=== PATIENT | female | born 1990 | race Caucasian/White ===

== ENCOUNTER 2018-06-26 11:41 | Day surgery (SDC) | payer OTHER ==
[2018-06-25 17:11] VITALS: BMI 23.0
--- NOTE | 2018-06-25 22:41 | HP ---
DATE OF ADMISSION: DATE OF DICTATION: 06/25/2018 HISTORY OF PRESENT ILLNESS: The patient is a 28-year-old female, known to my practice, who enters for removal of IUD from a hysteroscopy, D&C, exploratory laparoscopy with excision of ovarian cyst. Patient was referred to me by a inspection supervisor from [place], [place], Dr. Philippe. She has had Paragard IUD in place since 2011. The last several months, patient had prolonged difficult to control bleeding. Her menses are relatively on time. Sonogram showed IUD in a right position, but other than that, was very difficult to diagnose. In addition, patient had complaints of pelvic pain and dyspareunia. The same sonogram showed left adnexal cyst measuring 9.2 cm which certainly would explain the pain. Patient is planning to have children in the future. Every effort will be done to preserve fertility. At that point, she decided to give up the IUD. This will be searched for under anesthesia, since the strings were not palpated. PAST MEDICAL, SOCIAL HISTORY: Unremarkable. FAMILY HISTORY: Without evidence of ovarian, uterine, breast or colon cancer. ALLERGIES: None. MEDICATION: None. REVIEW OF SYSTEMS: Unremarkable for all systems except what mentioned above. PHYSICAL EXAMINATION: GENERAL: Reveals very pleasant, well developed, well nourished white female, alert, oriented, in no acute distress. HEAD/NECK: Within normal limits. . CHEST/COR: Within normal limits. Regular sinus rhythm. ABDOMEN: Soft, flat. Mild left lower quadrant tenderness on the deep palpation. No guarding, no rebound. Bowel sounds normal. No CVA tenderness. PELVIC: External genitalia, vulva, vagina, BUS nulliparous. Blood in the vagina. Flow is compatible with menses. Cervix is nulliparous, small. Cannot visualize or palpate the strings. Uterus is axial, normal size. No significant tenderness. Right adnexa within normal limits. Left adnexa with fullness measuring at least 7 to 8 cm, quite tender on palpation. IMPRESSION: 1. Pelvic pain. 2. Left ovarian cyst, rather large and tender. 3. Deep dyspareunia. 4. Dysfunctional uterine bleeding with prolonged flow and relatively regular cycles. 5. Intrauterine device in place with lost strings. PLAN: 1. Hysteroscopy, dilation and curettage. 2. Removal of IUD. 3. Exploratory laparoscopy, resection of the left ovarian cyst. Patient understands the procedure very well. All the risks, material, complications were explained to patient and discussed at length. A lot of the discussion held was over the telephone the night before planned surgery. Patient understands, and consents to the operation. All questions answered. MD TERRELL ROQUE/[id number]
[2018-06-26] MEDS ORDERED: PROPOFOL 20 ML ONE (13:15)
[2018-06-26] MEDS ORDERED: MIDAZOLAM HCL 2 MG/2 ML SINGLE DOSE VIAL ONE (13:15)
[2018-06-26] MEDS ORDERED: ROCURONIUM BROMIDE 50 MG/5 ML VIAL ONE ×2 (13:15→14:12)
[2018-06-26] MEDS ORDERED: ceFAZolin SODIUM 1 GM VIAL ONE (13:45)
[2018-06-26] MEDS ORDERED: ceFAZolin SODIUM 1 GM VIAL IVPB ONE (13:48)
[2018-06-26] MEDS ORDERED: DESFLURANE GAS 240 ML BOTTLE IH ONE (14:38)
[2018-06-26] MEDS ORDERED: BUPIVACAINE HCL/PF 0.5% (5MG/ML) 10 ML VIAL ONE (14:48)
[2018-06-26] MEDS ORDERED: DEXAMETHASONE SOD PHOSPHATE 4 MG/1 ML VIAL ONE (14:59)
[2018-06-26] MEDS ORDERED: KETOROLAC TROMETHAMINE 30 MG/1 ML VIAL ONE (14:59)
[2018-06-26] MEDS ORDERED: NEOSTIGMINE METHYLSULFATE 0.5 MG/ML - 10 ML MDV ONE (15:02)
[2018-06-26] MEDS ORDERED: GLYCOPYRROLATE 0.2 MG/1 ML VIAL ONE (15:07)
--- NOTE | 2018-06-26 15:29 | OP ---
Operative Note - Note: Operative Date: 06/26/18 Pre-Operative Diagnosis: left ovarian cyst, pelvic pain, bleeding, dyspareunia Operation: Hysterocopy with removal of IUD and D&C. exploratory laparoscopy with lysis of adhesion and removal of left ovarian cyst Surgeon: Osiel Jama Adjuster Piano Action: Paige Burris Anesthesiologist/AIR FORCE SENIOR OFFICER: Myles Guerin Anesthesia: General Specimens Removed: ahesion, curretage, IUD and fluid for cystology and cyst wall and lining Estimated Blood Loss (mls): 25 Drains, Volume Out (mls): 200 (foreman) Fluid Volume Replaced (mls): 1,400 Operative Report Dictated: Yes
[2018-06-26] MEDS ORDERED: ONDANSETRON 4 MG/2 ML VIAL IVPUSH PRN (15:39)
[2018-06-26] MEDS ORDERED: oxyCODONE HCL 5 MG TABLET PO PRN (15:39)
[2018-06-26] MEDS ORDERED: LACTATED RINGERS SOLUTION 1,000 ML IV SCH (15:45)
[2018-06-26] MEDS ORDERED: ONDANSETRON 4 MG/2 ML VIAL IVPUSH ONE ×2 (16:20→18:25)
[2018-06-26] MEDS ORDERED: METOCLOPRAMIDE HCL INJECTION 10 MG/2 ML VIAL IVPUSH ONE (16:30)
[2018-06-26] MEDS ORDERED: ONDANSETRON 4 MG/2 ML VIAL ONE ×2 (17:32→18:29)
[2018-06-26] MEDS ORDERED: METOCLOPRAMIDE HCL INJECTION 10 MG/2 ML VIAL ONE (17:44)
[2018-06-26 18:03] VITALS: TEMP 97.5
[2018-06-26 20:01] VITALS: BP 115/72; PULSE 77
--- NOTE | 2018-06-27 08:27 | OP ---
DATE OF OPERATION: DATE OF DICTATION: 06/26/2018 PREOPERATIVE DIAGNOSES: 1. Menorrhagia, retained IUD. 2. Pelvic pain. 3. Dyspareunia. 4. Large left ovarian cyst. POSTOPERATIVE DIAGNOSES: 1. Menorrhagia, retained IUD. 2. Pelvic pain. 3. Dyspareunia. 4. Large left ovarian cyst. 5. Left-sided pelvic adhesions. PROCEDURE: , lysis of pelvic adhesions. SURGEON: Osiel Jama MD FIELD TECH: ANESTHESIA: General with ET. PROCEDURE AND FINDINGS: Under general anesthesia, patient was placed in dorsal lithotomy position. Examination was carried out confirming preoperative findings. Following vaginal prep and drape, speculum was inserted, and cervix was grasped with tenaculum. Using thin packing forceps, IUD was identified and removed. It was sent for identification. Hysteroscopy was carried out with saline as the distending medium. Normal cavity with 2 normal tubal ostia were visualized. Endocervix was clean. Following minimal dilation using small curette, sharp curettage was performed producing small amount of tissue which was sent as a specimen. [employer] uterine manipulator was placed in the uterus and Shine catheter was inserted. Patient was redraped for the laparoscopy. Incision was placed vertically inside the umbilicus. Veress needle was introduced, and pneumoperitoneum was accomplished without difficulty. A 12-mm trocar was then introduced into the abdomen. Laparoscope was inserted. Under direct vision, 2 additional 5-mm trocars were placed on the right and left side at the level of umbilicus. Using atraumatic manipulator, pelvis was thoroughly examined. Large about 8- to 10-cm was noted. There were multiple adhesions between the cyst wall, and posterior leaf of broad ligament and the cyst was fixed in the position. Right adnexa and left fallopian tube were completely within normal limits. There was no evidence of endometriosis, infection, or any other pathology. Laparoscopic needle was then placed in the abdomen and cavity of the cyst was entered. About 40 mL of clear fluid was withdrawn. Cyst was then grasped and incised with LigaSure device. The rest of the fluid was allowed to escape from the cyst. Inside of the cyst was examined and was noted to be completely smooth without any excrescences. Deflated cyst was then elevated, and extensive adhesions posteriorly were noted. They were all lysed by sharp dissection using LigaSure device. Specimen of the adhesions was removed and sent for Pathology. Using LigaSure device, about one-third of the cyst wall was then excised creating an opening. With the use of 2 graspers, remaining lining of the cyst was then pealed by blunt dissection. Both specimens were placed in the cul-de-sac. Pelvis was thoroughly lavaged. Edges of the excision were secured, and hemostasis was attended to copiously. Most of the ovarian tissue was preserved. Using EndoCatch, specimens were retrieved. Pelvis was lavaged again, and fluid was suctioned. Hemostasis was excellent. All parts were then removed under direct vision. Gas was allowed to escape from the abdomen. Umbilical incision was closed with Vicryl 2-0 on fascia and continuous 3-0 Monocryl subcuticular on the skin. Remaining two 5-mm incisions were closed with subcuticular Monocryl 3-0 sutures. Steri-Strips were applied and covered with bandage. Shine was removed. Urine was clear. Patient was awakened without any problems. In stable condition and comfortable, patient was transferred to the postanesthesia care unit. Blood loss was 25 mL. MD TERRELL ROQUE/[id number]
--- NOTE | 2018-06-30 10:54 | PATH ---
Surgical Pathology Report Patient Name: HEATH RIOS [facility]. Rec. #: [id number] /Age/Gender: 1990 (Age: 28) / F Account: [id number] Location: [facility] Taken: 06/26/2018 Received: 06/29/2018 Reported: 06/30/2018 Physicians: Osiel Jama MD Specimen(s) Received A: REMOVED IUD B: ENDOMETRIAL CURETTINGS C: LEFT OVARIAN CYST AND LINING D: PELVIC ADHESIONS Clinical History Left adnexal cyst, dyspareunia Final Diagnosis A. ACCOUNTS ADMINISTRATOR, UTERUS, REMOVAL: ACCOUNTS ADMINISTRATOR CONSISTENT WITH IUD (GROSS ONLY). B. ENDOMETRIUM, CURETTING: ENDOCERVICAL MUCOSA WITH ACUTE AND CHRONIC INFLAMMATION, AND SCANT ENDOMETRIAL EPITHELIUM. NO ENDOMETRIAL HYPERPLASIA OR CARCINOMA IDENTIFIED. C. LEFT OVARY, CYSTECTOMY: BENIGN MUCINOUS CYSTADENOMA, BENIGN OVARIAN FIBROMA. D. PELVIC ADHESIONS, EXCISION: BENIGN FIBROVASCULAR TISSUE CONSISTENT WITH ADHESIONS. Electronically Signed Chico Collier M.D. Gross Description A. Received fresh labeled "removed IUD," is a 3.5 cm in length T-Shaped device with attached string, consistent with an IUD. No soft tissue is present. No sections are submitted, gross only. B. Received in formalin labeled "endometrial curettings," is a 0.8 x 0.6 x 0.2 cm aggregate of alford soft tissue fragments admixed with blood-tinged mucous. The formalin is filtered and the specimen is entirely submitted in one cassette. C. Received in formalin labeled "left ovarian cyst lining," is a 4.5 x 3.3 x 1.3 cm aggregate of alford, irregular portions of soft tissue, consistent with a disrupted cyst. The outer surface of the cyst is alford and smooth. Sectioning reveals a smooth inner lining. No excrescences are identified. Sectioning of the cyst wall reveals a 0.8 cm in greatest dimension solid nodule within the cyst wall. The cut surface of the nodule is homogeneous alford-yellow and firm. Classifying Machine Operator sections are submitted in 3 cassettes as follows: 1-solid nodule; 0-3-ofykzxaplu petroleum products sales representative cyst. D. Received in formalin labeled "pelvic adhesions," is a 1.3 cm in greatest dimension alford soft tissue fragment. The specimen is submitted in toto in one cassette. DL/06/29/2018 [facility]/2018
--- NOTE | 2018-06-30 16:03 | PATH ---
Cytology Non-Gynecological Report Patient Name: HEATH RIOS [facility]. Rec. #: [id number] /Age/Gender: 1990 (Age: 28) / F Account: [id number] Location: [facility] Taken: 06/29/2018 Received: 06/29/2018 Reported: 06/30/2018 Physicians: Osiel Jama MD Specimen(s) Received LEFT OVARIAN CYST FLUID Clinical History Ovarian cyst Final Diagnosis LEFT OVARIAN CYST FLUID, ASPIRATION: SATISFACTORY FOR EVALUATION. BENIGN (NO MALIGNANT CELLS IDENTIFIED). PROTEINACEOUS MATERIAL WITH NO INTACT EPITHELIAL COMPONENT IDENTIFIED, AND SCANT MACROPHAGES. Comment: Also see [id number]. Electronically Signed [place] Collier M.D. Gross Description 40ML of cloudy white fluid was received fresh. 2 cytospin and 1 cell block was prepared.
== END 2018-06-26 20:05 | disposition home or self-care (01) ==
LOC: JASU-SURG 11:41
PROVIDERS: ATTEND Specialist
PROC: 0UC98ZZ Extirpation of Matter from Uterus, Via Natural or Artificial Opening Endoscopic (ICD-10-PCS; principal; 2018-06-26 13:00)
PROC: 0UDB7ZX Extraction of Endometrium, Via Natural or Artificial Opening, Diagnostic (ICD-10-PCS; 2018-06-26 13:00)
PROC: 0UJD8ZZ Inspection of Uterus and Cervix, Via Natural or Artificial Opening Endoscopic (ICD-10-PCS; 2018-06-26 13:00)
PROC: 0UB14ZZ Excision of Left Ovary, Percutaneous Endoscopic Approach (ICD-10-PCS; 2018-06-26 13:00)
DX: N92.0 Excessive and frequent menstruation with regular cycle (principal); N94.10 Unspecified dyspareunia; N83.202 Unspecified ovarian cyst, left side; Z97.5 Presence of (intrauterine) contraceptive device
CPT/HCPCS: 84703; 88108; 88300-TC; 88305-TC; 88307-TC; 94760